=== PATIENT | female | born 1975 | race Caucasian/White ===

== ENCOUNTER 2023-02-16 09:21 | Day surgery (SDC) | payer OTHER ==
[~2023-02-16] VITALS: Ht 172.7 cm; Wt 88.5 kg
[~2023-02-16 09:21] MED LIST: ALBU8.5H INH; IBUP-1428 PO; JOLETAB PO; LIDOCAINE W/EPINEPHRINE 1% 20ML VIAL XX ONE; MAGN250T7 PO; MELA10TA14 PO; METH-1164 PO; RIZA10TA58 PO; SODIUM BICARBONATE 8.4% INJ 50MEQ 50ML VIAL XX ONE
[2023-02-16] MEDS ORDERED: LIDOCAINE W/EPINEPHRINE 1% 20ML VIAL XX ONE (09:45)
[2023-02-16] MEDS ORDERED: SODIUM BICARBONATE 8.4% INJ 50MEQ 50ML VIAL XX ONE (09:45)
[2023-02-16] MEDS ORDERED: BACITRACIN OINTMENT 30GM TUBE As Ordered ONE (10:54)
[2023-02-16 12:20] VITALS: BP 129/64; TEMP 98.8; O2SAT 96
== END 2023-02-16 12:20 | disposition home or self-care (01) ==
LOC: M SDC 09:21
PROVIDERS: ATTEND Orthopaedic Surgery Hand Surgery
DX: M65.341 Trigger finger, right ring finger (principal); J45.909 Unspecified asthma, uncomplicated; G43.909 Migraine, unspecified, not intractable, without status migrainosus; Z79.899 Other long term (current) drug therapy; Z88.0 Allergy status to penicillin; Z85.820 Personal history of malignant melanoma of skin